=== PATIENT | male | born 1950 | race Hispanic/Latino ===

== ENCOUNTER 2020-06-09 10:41 | Emergency (ER) | payer SELFPAY ==
[~2020-06-09] VITALS: Ht 170.2 cm; Wt 63.5 kg
[2020-06-09 15:39] VITALS: BP 0/0
== END 2020-06-09 15:42 | disposition expired ==
LOC: ER 10:42
DX: I46.9 Cardiac arrest, cause unspecified (principal); C22.8 Malignant neoplasm of liver, primary, unspecified as to type; Z85.528 Personal history of other malignant neoplasm of kidney
CPT/HCPCS: 99284